=== PATIENT | male | born 1980 | race Caucasian/White ===

== ENCOUNTER 2018-06-30 12:38 | Emergency (ER) | payer OTHER, SELFPAY ==
[2018-06-30 12:39] VITALS: BP 128/76; PULSE 66; RESP 18; TEMP 37.4; O2SAT 98; BMI 22.4
--- NOTE | 2018-06-30 13:11 | ED.VISSUMM ---
- ER Visit Summary Date of Service: 06/30/18 Chief Complaint: Possible bat bite History of Present Illness: The patient is a 38 M who presents after waking up with a bat in his bedroom. Patient does not think he was bitten. Patient denies any pain anywhere. Patient states animal control was notified and the bat was captured. Patient states the bat was euthanized and is at the [facility] now. Patient denies any symptoms. Patient denies any fevers or chills. Physical Examination: Vital signs are stable. Patient is afebrile. Patient is in no acute distress. Oral mucosa is pink and moist. Neck is supple. Trachea is midline. There is no JVD noted. Heart was regular rate and rhythm. Lungs are clear and equal bilaterally. There is good respiratory effort noted. Abdomen is soft. Bowel sounds are normal. There is no tenderness noted. Cranial nerves II through XII are intact. There are no focal motor or sensory deficits noted. Emergency Department Course and Treatment: Patient was given rabies immunoglobulin and rabies vaccine. Patient was instructed to return in 3 days for his next rabies vaccine. Patient was given a schedule for his rabies vaccines. Patient understood and was agreeable with the plan. All questions were answered. Disposition: Discharged home Impression: Rabies exposure This note was generated with [employer] dictation software. It may contain incorrect words, spelling, and punctuation that were not noted in review of the chart prior to signing ED Disposition - Plan for ED Patient: Disposition: Home or Assisted Living Chief Complaint: Bite Diagnosis: Need for post exposure prophylaxis for rabies Instructions: Rabies Immune Globulin (Human) Solution for injection Referrals: Vikas Conn MD [Primary Care Provider] -
[2018-06-30] MEDS: Rabies Vaccine,Human Diploid 2.5 UNITS Vial IM (14:08)
[2018-06-30] MEDS: Rabies Immune Globulin 150 UNITS/ML 1500 UNITS IM (14:14)
[2018-06-30 14:40] VITALS: BP 112/68; PULSE 62; RESP 14; RESP 18; O2SAT 99
== END 2018-06-30 14:42 | disposition home or self-care (01) ==
PROVIDERS: Emergency Provider Emergency Medicine; Family Provider Family Medicine; PCP Family Medicine
DX: Z20.3 Contact with and (suspected) exposure to rabies (principal)
CPT/HCPCS: 90375; 90675; 96372; 99282

== ENCOUNTER → 2018-07-03 11:55 | Outpatient (CLI) | payer OTHER, SELFPAY ==
[2018-07-03 11:56] VITALS: BP 112/70; PULSE 58; RESP 17; O2SAT 100
== END ==
PROVIDERS: Family Provider Family Medicine; PCP Family Medicine; Visit Provider Emergency Medicine
DX: Z23 Encounter for immunization (principal)
CPT/HCPCS: 90675; 96372

== ENCOUNTER 2018-07-07 18:22 | Outpatient (CLI) | payer OTHER, SELFPAY ==
[2018-07-07 18:31] VITALS: BP 117/71; PULSE 59; RESP 14; TEMP 36.7; O2SAT 98; BMI 21.7
[2018-07-07] MEDS: Rabies Vaccine,Human Diploid 2.5 UNITS Vial IM (18:35)
== END 2018-07-07 18:43 | disposition home or self-care (01) ==
PROVIDERS: Family Provider Family Medicine; PCP Family Medicine; Visit Provider Emergency Medicine
DX: Z23 Encounter for immunization (principal); Z20.3 Contact with and (suspected) exposure to rabies
CPT/HCPCS: 90675; 96372

== ENCOUNTER → 2018-07-15 12:57 | Outpatient (CLI) | payer OTHER, SELFPAY ==
[2018-07-15 12:50] VITALS: BP 120/66; PULSE 61; RESP 18; TEMP 36.6; O2SAT 100; BMI 21.7
[2018-07-15] MEDS: Rabies Vaccine,Human Diploid 2.5 UNITS Vial IM (12:52)
== END ==
PROVIDERS: Family Provider Family Medicine; PCP Family Medicine; Visit Provider Emergency Medicine
DX: Z23 Encounter for immunization (principal)
CPT/HCPCS: 90675; 96372

== ENCOUNTER 2024-12-26 05:44 | Emergency (ER) | payer BC, SELFPAY ==
[2024-12-26 05:45] VITALS: BP 130/75; PULSE 61; RESP 16; TEMP 36.6; O2SAT 100; BMI 22.4
--- NOTE | 2024-12-26 06:03 | EX.ED.VIS.EY ---
HPI History of Present Illness Chief Complaint: Eye Problem Informant: patient Onset/Context/Timing Location: Left Eye Onset: Today Associated Symptoms History of injury: No Visual correction: None Narrative Narrative: Healthy 44-year-old male awoke today and upon looking in the mirror noticed an abnormal red area in his left eye. He does not remember seeing this yesterday but he is unsure because he did not pay close attention. He has had no eye pain or changes in his vision, yesterday nor today. He denies any illness except for having a mild cough recently. He does not think he was coughing really hard. He swam yesterday which she does fairly frequently. He also started working out recently, he lifted some weights but was not yesterday, has been having a sore back recently from it so he has not lifted in a couple days. No vomiting. No rashes. No symptoms of anemia such as fatigue, dyspnea with exertion, melena, GI bleeding symptoms. PFSH PFSH no medical history Home Medications ?Medication ?Instructions ?Recorded ?Last Taken ?Type No Known/Unobtainable [No Known 07/07/17 Unknown History Home Medications] Allergy/AdvReac Type Severity Reaction Status Date / Time Penicillins Allergy Unknown Verified 12/26/24 05:45 Family History no significant family his Surgical History History of tonsillectomy and adenoidectomy Social History Smoking Status: Never smoker ROS ROS ED Constitutional Constitutional ED: Denies chills or fever(s) Eyes Eyes: Denies change in vision, discharge from eye(s) or eye pain ENT ENT ED: Denies discharge from eye(s) or sore throat Cardiovascular Cardiovascular: Denies chest pain Respiratory/Chest Respiratory/Chest: Reports cough; Denies dyspnea on exertion or sputum Gastrointestinal Gastrointestinal: Denies vomiting Musculoskeletal Musculoskeletal: Reports back pain Integumentary Denies rash Neurologic Neurologic: Denies headache(s), paresthesias or weakness EXAM Physical Exam Const Vital Signs: 12/26/24 05:45 Temperature 97.9 F Temperature Source Oral Pulse Rate 61 Respiratory Rate 16 Blood Pressure 130/75 H Blood Pressure Mean 93 Pulse Ox 100 Oxygen Delivery Method Room Air Positive well nourished and well developed General Appearance ED: well developed and NAD HEENT HEENT Narrative: No mucosal/palatal petechia. atraumatic; Negative for tenderness Mouth ED: Yes oral and palatal mucosa normal and Yes lips normal Mouth: oral and palatal mucosa normal and lips normal Eyes PERRL and EOMs intact bilaterally Eyes Narrative: Small subconjunctival hemorrhage left temporal, not perilimbal. Cornea normal. No chemosis or signs of trauma. No bleeding from the eye or nose. Resp normal respiratory effort Extremity normal to inspection General Extremety ED: Negative for edema General Extremity: Negative for edema Neuro oriented x3, CN's II-XII intact bilaterally and gait normal Sensorium / Orientation: alert Skin Lesions: no lesions Rashes: no rashes MDM MDM MDM Narrative Medical decision making narrative: Vital signs are normal including his blood pressure 130/75. His exam is benign. He has a small left temporal subconjunctival hemorrhage. Looks acute, but very small area and not perilimbal. There is no hyphema or signs of corneal abnormality. His visual acuities are normal. He does not have any symptoms otherwise of thrombocytopenia or anemia so I do not think he needs to have blood work at this time, but we discussed all that and reasons to follow-up or return to the hospital. Specifically we discussed if he develops petechiae anywhere, he denies seeing anything recently. Supportive care advised. Discharge Plan Triage Chief Complaint: Eye Problem ED Provider: Houston Hale Dx/Rx/DC Orders Clinical Impression: Non-traumatic subconjunctival hemorrhage of left eye Instructions: ED Subconjunctival Hemorrhage Prescriptions: No Action No Known Home Medications Primary Care Provider: Vikas Conn Referrals: Vikas Conn MD [Primary Care Provider] - (See instructions and follow-up per the recommendations) Print Language: Amharic Disposition Disposition: Home, Self Care
[2024-12-26 06:17] VITALS: BP 119/71; PULSE 65; RESP 16; TEMP 36.8; O2SAT 100
== END 2024-12-26 06:22 | disposition home or self-care (01) ==
LOC: ED 06:16
PROVIDERS: Emergency Provider Emergency Medicine; PCP Family Medicine; Visit Provider Emergency Medicine
DX: H11.32 Conjunctival hemorrhage, left eye (principal)
CPT/HCPCS: 99283